=== PATIENT | female | born 1935 | race Two or more races ===

== ENCOUNTER 2018-02-02 19:34 | Inpatient (IN) | payer MEDICARE, OTHER ==
[~2018-02-02] VITALS: Ht 170.2 cm; Wt 59.0 kg
[2018-02-02] MEDS ORDERED: METOPROLOL TAR100 MG ORAL (19:41)
[2018-02-02] MEDS ORDERED: ELIQUIS5 MG PO (19:41)
[2018-02-02] MEDS ORDERED: DIOVAN HCT 1601 EACH ORAL (19:41)
[2018-02-02] MEDS ORDERED: CALCIUM MAGNES1 EAC2 PO (19:41)
[2018-02-02] MEDS ORDERED: ZINC50 M1 ORAL (19:41)
[2018-02-02] MEDS ORDERED: FOSAMAX70 MG ORAL (19:41)
[2018-02-02] MEDS ORDERED: ZINC10 MG ORAL (19:41)
[2018-02-02] MEDS ORDERED: VITAMIN D400 INTLU ORAL (19:41)
[2018-02-02 19:55] VITALS: BP 173/84
[2018-02-02] MEDS: Metoprolol 5mg/5ml Inj IVP SCH ×3 (20:05→20:33)
[2018-02-02 20:08] LABS: BASOPHILS % (AUTO) 2.4 % (0.0-2.0); HEMATOCRIT 44.4 % (37.0-47.0); HEMOGLOBIN 15.2 G/DL (12.0-16.0); LYMPHOCYTES % (AUTO) 26.2 % (20.0-45.0); MEAN CORPUSCULAR VOLUME 90 FL (80-99); MONOCYTES % (AUTO) 13.5 % (1.0-10.0); PLATELET COUNT 152 K/UL (150-450); RED BLOOD COUNT 4.95 M/UL (4.20-5.40); RED CELL DISTRIBUTION WIDTH 12.2 % (11.6-14.8); WHITE BLOOD COUNT 4.3 K/UL (4.8-10.8)
[2018-02-02 20:22] LABS: INR 1.1 (0.9-1.1)
[2018-02-02 20:29] LABS: ANION GAP 7 mmol/L (5-15); BLOOD UREA NITROGEN 15 mg/dL (7-18); CALCIUM 9.5 MG/DL (8.5-10.1); CARBON DIOXIDE 29 MMOL/L (21-32); CHLORIDE 101 MMOL/L (98-107); CREATININE 0.8 MG/DL (0.55-1.30); POTASSIUM 4.6 MMOL/L (3.5-5.1); SODIUM 137 MMOL/L (136-145)
[2018-02-02 20:41] LABS: ALANINE AMINOTRANSFERASE 103 U/L (12-78); ALBUMIN 3.6 G/DL (3.4-5.0); ALBUMIN/GLOBULIN RATIO 0.8 (1.0-2.7); ALKALINE PHOSPHATASE 97 U/L (46-116); ASPARTATE AMINO TRANSFERASE 124 U/L (15-37); BILIRUBIN,TOTAL 0.7 MG/DL (0.2-1.0); CREATINE KINASE 76 U/L (26-308)
--- NOTE | 2018-02-02 21:25 | Emergency Room Report ---
History of Present Illness General Chief Complaint: Chest Pain Source: Patient, EMS Present Illness HPI Patient is an 82-year-old female who presented after increased chest discomfort. Patient reports having increased left sided chest pain. Patient prior history of atrial fibrillation. She reportedly takes Allergies: Coded Allergies: No Known Allergies (Unverified , 02/02/18) Patient History Last Menstrual Period: NA Nursing Documentation-PMH Hx Cardiac Problems: Yes - afib Hx Hypertension: Yes Physical Exam Vital Signs Date Time Temp Pulse Resp B/P (MAP) Pulse Ox O2 Delivery O2 Flow Rate FiO2 02/02/18 19:34 98.5 117 18 160/112 97 Room Air 98.4 Medical Decision Making Diagnostic Impression: Primary Impression: Atrial fibrillation with RVR ER Course Patient presented for chest pain.Differential diagnosis included but was not limited to acute coronary syndrome, pulmonary embolism, pneumonia, aortic dissection, shingles, pneumothorax, aortic dissection, esophageal rupture, pericarditis. Because of complexity of patient's case laboratory testing and imaging studies were ordered.The patient was noted to be anti-coagulated with Elliquis as per patient was given IV metoprolol with improvement in her pain. Patient was noted to have evidence of nature fibrillation with rapid ventricular response an EKG with a rate of 103. The patient was given IV Lasix. Patient was discussed with Dr. Sheikh for cardiology consult. Dr. Mega Solares was contacted for inpatient management. Labs Test 02/02/18 19:53 White Blood Count 4.3 K/UL (4.8-10.8) Red Blood Count 4.95 M/UL (4.20-5.40) Hemoglobin 15.2 G/DL (12.0-16.0) Hematocrit 44.4 % (37.0-47.0) Mean Corpuscular Volume 90 FL (80-99) Mean Corpuscular Hemoglobin 30.7 PG (27.0-31.0) Mean Corpuscular Hemoglobin Concent 34.1 G/DL (32.0-36.0) Red Cell Distribution Width 12.2 % (11.6-14.8) Platelet Count 152 K/UL (150-450) Mean Platelet Volume 6.9 FL (6.5-10.1) Neutrophils (%) (Auto) 56.0 % (45.0-75.0) Lymphocytes (%) (Auto) 26.2 % (20.0-45.0) Monocytes (%) (Auto) 13.5 % (1.0-10.0) Eosinophils (%) (Auto) 2.0 % (0.0-3.0) Basophils (%) (Auto) 2.4 % (0.0-2.0) Prothrombin Time 11.2 SEC (9.30-11.50) Prothromb Time International Ratio 1.1 (0.9-1.1) Activated Partial Thromboplast Time 29 SEC (23-33) Sodium Level 137 MMOL/L (136-145) Potassium Level 4.6 MMOL/L (3.5-5.1) Chloride Level 101 MMOL/L (98-107) Carbon Dioxide Level 29 MMOL/L (21-32) Anion Gap 7 mmol/L (5-15) Blood Urea Nitrogen 15 mg/dL (7-18) Creatinine 0.8 MG/DL (0.55-1.30) Estimat Glomerular Filtration Rate mL/min (>60) Glucose Level 125 MG/DL (74-106) Calcium Level 9.5 MG/DL (8.5-10.1) Total Bilirubin 0.7 MG/DL (0.2-1.0) Aspartate Amino Transf (AST/SGOT) 124 U/L (15-37) Alanine Aminotransferase (ALT/SGPT) 103 U/L (12-78) Alkaline Phosphatase 97 U/L (46-116) Total Creatine Kinase 76 U/L (26-308) Creatine Kinase MB 1.0 NG/ML (0.0-3.6) Creatine Kinase MB Relative Index 1.3 Troponin I 0.000 ng/mL (0.000-0.056) Pro-B-Type Natriuretic Peptide 1251 pg/mL (0-125) Total Protein 8.0 G/DL (6.4-8.2) Albumin 3.6 G/DL (3.4-5.0) Globulin 4.4 g/dL Albumin/Globulin Ratio 0.8 (1.0-2.7) EKG Diagnostic Results Rate: tachycardiac Last Vital Signs Date Time Temp Pulse Resp B/P (MAP) Pulse Ox O2 Delivery O2 Flow Rate FiO2 02/02/18 20:33 98 168/88 02/02/18 19:55 18 Room Air 02/02/18 19:55 98.4 99 98.4 Status: improved Disposition: ADMITTED INPATIENT Condition: Serious Referrals: Arnie Sheikh MD (PCP) Ariel Elizabeth MD February 02, 2018 21:25
[2018-02-02 22:00] VITALS: BP 161/88
[2018-02-03] MEDS ORDERED: Zolpidem 5mg tab ORAL PRN (00:45)
[2018-02-03] MEDS ORDERED: Digoxin 0.5mg/2ml Inj IVP SCH (01:30)
[2018-02-03 04:00] VITALS: BP 120/89
[2018-02-03 04:41] LABS: BASOPHILS % (AUTO) 1.7 % (0.0-2.0); EOSINOPHILS % (AUTO) 1.8 % (0.0-3.0); HEMATOCRIT 43.6 % (37.0-47.0); HEMOGLOBIN 15.4 G/DL (12.0-16.0); LYMPHOCYTES % (AUTO) 26.6 % (20.0-45.0); MEAN CORPUSCULAR VOLUME 91 FL (80-99); MONOCYTES % (AUTO) 14.1 % (1.0-10.0); NEUTROPHILS % (AUTO) 55.8 % (45.0-75.0); PLATELET COUNT 143 K/UL (150-450); RED CELL DISTRIBUTION WIDTH 11.9 % (11.6-14.8); WHITE BLOOD COUNT 4.5 K/UL (4.8-10.8)
[2018-02-03 04:56] LABS: ANION GAP 7 mmol/L (5-15); BLOOD UREA NITROGEN 14 mg/dL (7-18); CALCIUM 9.7 MG/DL (8.5-10.1); CARBON DIOXIDE 31 MMOL/L (21-32); CHLORIDE 103 MMOL/L (98-107); CHOLESTEROL 200 MG/DL (< 200); CREATININE 0.8 MG/DL (0.55-1.30); HDL CHOLESTEROL 71 MG/DL (40-60); POTASSIUM 3.5 MMOL/L (3.5-5.1); SODIUM 141 MMOL/L (136-145); TRIGLYCERIDES 55 MG/DL (30-150)
[2018-02-03 08:00] VITALS: BP 92/57
[2018-02-03] MEDS: Losartan 50mg tab ORAL SCH (09:00)
[2018-02-03] MEDS: Digoxin 0.125mg tab ORAL SCH (09:45)
[2018-02-03] MEDS: Eliquis 2.5mg tablet ORAL SCH ×2 (09:45→17:46)
[2018-02-03] MEDS: hydroCHLOROthiazide 12.5mg TAB ORAL SCH (09:47)
--- NOTE | 2018-02-03 10:27 | Diagnostic Imaging Report ---
Indication: Dyspnea Comparison: None A single view chest radiograph was obtained. Findings: Lungs are hyperexpanded. Heart is enlarged. The bones are osteopenic. No pleural effusion seen. IMPRESSION: COPD Cardiomegaly
--- NOTE | 2018-02-03 11:28 | General Progress Note ---
Progress Note Progress Note [id number] full note dictated Mariela Laws MD February 03, 2018 11:28
--- NOTE | 2018-02-03 11:33 | Consultation ---
History of Present Illness General Date patient seen: February 03, 2018 Chief Complaint: Chest Pain Present Illness HPI 82-year-old female with hx of HTN, afib, on chronic anticoagulation presented to ER with CC of increased chest discomfort. Patient reports having increased left sided chest pain. Her heart rate is increased in ER. she received one dose of Metoprolol in ER. She is admitted to telemetry for further work up. Allergies: Coded Allergies: No Known Allergies (Unverified , 02/02/18) Medication History Scheduled Alendronate Sodium* (Fosamax*), 70 MG ORAL ONCE A WEEK, (Reported) Metoprolol Tartrate* (Metoprolol Tartrate*), 100 MG ORAL EVERY 12 HOURS, ( Reported) Valsartan/Hydrochlorothiazide 160-12.5MG (Diovan Hct 160-12.5 Mg Tab), Unknown Dose ORAL DAILY, (Reported) Vitamin D (Vitamin D3), 200 UNITS ORAL DAILY, (Reported) Miscellaneous Medications Apixaban (Eliquis), Unknown Dose PO, (Reported) Ca Carb & Gluc/Mag Ox & Gluc (Calcium Magnesium Caplet), Unknown Dose PO, ( Reported) Zinc (Zinc), Unknown Dose ORAL, (Reported) Zinc Gluconate (Zinc), 10 MG ORAL, (Reported) Patient History Healthcare decision maker Resuscitation status Full Code Advanced Directive on File No Past Medical/Surgical History Past Medical/Surgical History: (1) Hypertension (2) Chronic atrial fibrillation (3) Chronic anticoagulation Review of Systems Cardiovascular: Reports: chest pain All Other Systems: negative except mentioned in HPI Physical Exam General Appearance: WD/WN Lines, tubes and drains: peripheral HEENT: normocephalic, atraumatic Neck: non-tender, normal alignment Respiratory/Chest: chest wall non-tender, normal breath sounds Cardiovascular/Chest: normal peripheral pulses, regular rhythm Abdomen: normal bowel sounds, non tender, soft Genitourinary/Rectal: normal genital exam Extremities: normal range of motion Skin Exam: normal pigmentation Last 24 Hour Vital Signs Date Time Temp Pulse Resp B/P (MAP) Pulse Ox O2 Delivery O2 Flow Rate FiO2 02/03/18 09:45 88 02/03/18 09:00 92/57 02/03/18 08:00 97.0 88 92/57 100 Room Air 97.0 02/03/18 05:57 120/89 02/03/18 04:00 93 02/03/18 04:00 98.0 68 120/89 98 Room Air 98.0 02/03/18 01:30 87 02/02/18 22:10 98.4 90 18 161/88 98 Room Air 98.4 02/02/18 22:00 98.4 90 18 161/88 98 Room Air 98.4 02/02/18 20:33 98 168/88 02/02/18 20:22 95 143/106 02/02/18 20:05 100 173/84 02/02/18 19:55 97 18 Room Air 02/02/18 19:55 98.4 97 18 173/84 99 Room Air 98.4 02/02/18 19:34 98.5 117 18 160/112 97 Room Air 98.4 Intake and Output 02/02/18 02/03/18 19:00 07:00 Intake Total 0 ml Balance 0 ml Intake Oral 0 ml # Voids 1 Laboratory Tests Test 02/02/18 19:53 02/03/18 04:00 White Blood Count 4.3 K/UL (4.8-10.8) L 4.5 K/UL (4.8-10.8) L Red Blood Count 4.95 M/UL (4.20-5.40) 4.80 M/UL (4.20-5.40) Hemoglobin 15.2 G/DL (12.0-16.0) 15.4 G/DL (12.0-16.0) Hematocrit 44.4 % (37.0-47.0) 43.6 % (37.0-47.0) Mean Corpuscular Volume 90 FL (80-99) 91 FL (80-99) Mean Corpuscular Hemoglobin 30.7 PG (27.0-31.0) 32.2 PG (27.0-31.0) H Mean Corpuscular Hemoglobin Concent 34.1 G/DL (32.0-36.0) 35.4 G/DL (32.0-36.0) Red Cell Distribution Width 12.2 % (11.6-14.8) 11.9 % (11.6-14.8) Platelet Count 152 K/UL (150-450) 143 K/UL (150-450) L Mean Platelet Volume 6.9 FL (6.5-10.1) 7.7 FL (6.5-10.1) Neutrophils (%) (Auto) 56.0 % (45.0-75.0) 55.8 % (45.0-75.0) Lymphocytes (%) (Auto) 26.2 % (20.0-45.0) 26.6 % (20.0-45.0) Monocytes (%) (Auto) 13.5 % (1.0-10.0) H 14.1 % (1.0-10.0) H Eosinophils (%) (Auto) 2.0 % (0.0-3.0) 1.8 % (0.0-3.0) Basophils (%) (Auto) 2.4 % (0.0-2.0) H 1.7 % (0.0-2.0) Prothrombin Time 11.2 SEC (9.30-11.50) Prothromb Time International Ratio 1.1 (0.9-1.1) Activated Partial Thromboplast Time 29 SEC (23-33) Sodium Level 137 MMOL/L (136-145) 141 MMOL/L (136-145) Potassium Level 4.6 MMOL/L (3.5-5.1) 3.5 MMOL/L (3.5-5.1) Chloride Level 101 MMOL/L (98-107) 103 MMOL/L (98-107) Carbon Dioxide Level 29 MMOL/L (21-32) 31 MMOL/L (21-32) Anion Gap 7 mmol/L (5-15) 7 mmol/L (5-15) Blood Urea Nitrogen 15 mg/dL (7-18) 14 mg/dL (7-18) Creatinine 0.8 MG/DL (0.55-1.30) 0.8 MG/DL (0.55-1.30) Estimat Glomerular Filtration Rate mL/min (>60) mL/min (>60) Glucose Level 125 MG/DL (74-106) H 116 MG/DL (74-106) H Calcium Level 9.5 MG/DL (8.5-10.1) 9.7 MG/DL (8.5-10.1) Total Bilirubin 0.7 MG/DL (0.2-1.0) Aspartate Amino Transf (AST/SGOT) 124 U/L (15-37) H Alanine Aminotransferase (ALT/SGPT) 103 U/L (12-78) H Alkaline Phosphatase 97 U/L (46-116) Total Creatine Kinase 76 U/L (26-308) Creatine Kinase MB 1.0 NG/ML (0.0-3.6) Creatine Kinase MB Relative Index 1.3 Troponin I 0.000 ng/mL (0.000-0.056) Pro-B-Type Natriuretic Peptide 1251 pg/mL (0-125) H Total Protein 8.0 G/DL (6.4-8.2) Albumin 3.6 G/DL (3.4-5.0) Globulin 4.4 g/dL Albumin/Globulin Ratio 0.8 (1.0-2.7) L Magnesium Level 1.9 MG/DL (1.8-2.4) Triglycerides Level 55 MG/DL (30-150) Cholesterol Level 200 MG/DL (< 200) LDL Cholesterol 122 mg/dL (<100) H HDL Cholesterol 71 MG/DL (40-60) H Cholesterol/HDL Ratio 2.8 (3.3-4.4) L Height (Feet): 5 Height (Inches): 7.00 Weight (Pounds): 130 Medications Current Medications Medications (Trade) Dose Ordered Sig/Andra Route PRN Reason Start Time Stop Time Status Last Admin Dose Admin Acetaminophen (Tylenol) 650 mg Q4H PRN ORAL Mild Pain/Temp > 101 02/03/18 00:45 03/05/18 00:44 Apixaban (Eliquis) 5 mg BID ORAL 02/03/18 09:00 03/05/18 08:59 02/03/18 09:45 Clonidine HCl (Catapres Tab) 0.1 mg EVERY 8 HOURS ORAL 02/03/18 06:00 03/05/18 05:59 02/03/18 05:57 Digoxin (Lanoxin) 0.125 mg DAILY ORAL 02/03/18 09:00 03/05/18 08:59 02/03/18 09:45 Hydrochlorothiazide (Hydrodiuril) 12.5 mg DAILY ORAL 02/03/18 09:00 03/05/18 08:59 02/03/18 09:47 Losartan Potassium (Cozaar) 50 mg DAILY ORAL 02/03/18 09:00 03/05/18 08:59 Pantoprazole (Protonix) 40 mg DAILY ORAL 02/03/18 09:00 03/05/18 08:59 Zolpidem Tartrate (Ambien) 5 mg HSPRN PRN ORAL Insomnia 02/03/18 00:45 02/10/18 00:44 Assessment/Plan Problem List: (1) ACS (acute coronary syndrome) ICD Codes: I24.9 - Acute ischemic heart disease, unspecified SNOMED: 359289934 (2) Atrial fibrillation with RVR ICD Codes: I48.91 - Unspecified atrial fibrillation SNOMED: 449828771268409 (3) Chronic anticoagulation 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 Kay Valentin MD February 03, 2018 11:33
[2018-02-03 12:00] VITALS: BP 93/60
--- NOTE | 2018-02-03 15:57 | Cardiology Report ---
APPROVED REPORT EKG Measurement Heart [id number] Atrial fibrillation with rapid ventricular response with premature ventricular or aberrantly conducted complexes Septal infarct, age undetermined Abnormal ECG
[2018-02-03 16:00] VITALS: BP 96/52
[2018-02-03 20:00] VITALS: BP 105/61
--- NOTE | 2018-02-03 20:10 | Cardiology Progress Note ---
Assessment/Plan Assessment/Plan The patient is seen and examined, full consult note will be dictated. Objective Last 24 Hour Vital Signs Date Time Temp Pulse Resp B/P (MAP) Pulse Ox O2 Delivery O2 Flow Rate FiO2 02/03/18 16:02 86 02/03/18 16:00 97.0 84 96/52 95 Room Air 97.0 02/03/18 14:00 93/60 02/03/18 12:00 97.3 81 93/60 96 Room Air 97.3 02/03/18 11:39 81 02/03/18 09:45 88 02/03/18 09:00 92/57 02/03/18 08:00 97.0 88 92/57 100 Room Air 97.0 02/03/18 07:40 78 02/03/18 05:57 120/89 02/03/18 04:00 93 02/03/18 04:00 98.0 68 120/89 98 Room Air 98.0 02/03/18 01:30 87 02/02/18 22:10 98.4 90 18 161/88 98 Room Air 98.4 02/02/18 22:00 98.4 90 18 161/88 98 Room Air 98.4 02/02/18 20:33 98 168/88 02/02/18 20:22 95 143/106 Intake and Output 02/02/18 02/03/18 19:00 07:00 Intake Total 0 ml Balance 0 ml Intake Oral 0 ml # Voids 1 Laboratory Tests Test 02/03/18 04:00 White Blood Count 4.5 K/UL (4.8-10.8) L Red Blood Count 4.80 M/UL (4.20-5.40) Hemoglobin 15.4 G/DL (12.0-16.0) Hematocrit 43.6 % (37.0-47.0) Mean Corpuscular Volume 91 FL (80-99) Mean Corpuscular Hemoglobin 32.2 PG (27.0-31.0) H Mean Corpuscular Hemoglobin Concent 35.4 G/DL (32.0-36.0) Red Cell Distribution Width 11.9 % (11.6-14.8) Platelet Count 143 K/UL (150-450) L Mean Platelet Volume 7.7 FL (6.5-10.1) Neutrophils (%) (Auto) 55.8 % (45.0-75.0) Lymphocytes (%) (Auto) 26.6 % (20.0-45.0) Monocytes (%) (Auto) 14.1 % (1.0-10.0) H Eosinophils (%) (Auto) 1.8 % (0.0-3.0) Basophils (%) (Auto) 1.7 % (0.0-2.0) Sodium Level 141 MMOL/L (136-145) Potassium Level 3.5 MMOL/L (3.5-5.1) Chloride Level 103 MMOL/L (98-107) Carbon Dioxide Level 31 MMOL/L (21-32) Anion Gap 7 mmol/L (5-15) Blood Urea Nitrogen 14 mg/dL (7-18) Creatinine 0.8 MG/DL (0.55-1.30) Estimat Glomerular Filtration Rate mL/min (>60) Glucose Level 116 MG/DL (74-106) H Calcium Level 9.7 MG/DL (8.5-10.1) Magnesium Level 1.9 MG/DL (1.8-2.4) Triglycerides Level 55 MG/DL (30-150) Cholesterol Level 200 MG/DL (< 200) LDL Cholesterol 122 mg/dL (<100) H HDL Cholesterol 71 MG/DL (40-60) H Cholesterol/HDL Ratio 2.8 (3.3-4.4) Arnie Blunt MD February 03, 2018 20:10
[2018-02-03 22:11] LABS: APPEARANCE,URINE CLEAR; BILIRUBIN, URINE NEGATIVE (NEGATIVE); COLOR,URINE PALE YELLOW; GLUCOSE, URINE (UA) NEGATIVE (NEGATIVE); KETONES,URINE NEGATIVE (NEGATIVE); LEUKOCYTE ESTERASE ,URINE NEGATIVE (NEGATIVE); NITRITE,URINE NEGATIVE (NEGATIVE); PH,URINE 6 (4.5-8.0); PROTEIN,URINE NEGATIVE (NEGATIVE); UROBILINOGEN,URINE NORMAL MG/DL (0.0-1.0)
--- NOTE | 2018-02-03 22:30 | Consultation ---
DATE OF CONSULTATION: 02/03/2018 NEPHROLOGY CONSULTATION CONSULTING PHYSICIAN: Mariela Laws M.D. REFERRING PHYSICIAN: Arnie Sheikh M.D. REASON FOR CONSULTATION: Fluid overload. HISTORY OF PRESENT ILLNESS: The patient is an pleasant 82-year-old female with past medical history significant for history of atrial fibrillation who presented to emergency room for evaluation of increasing chest pain and chest discomfort, which was left sided, was associated with some shortness of breath. Denies any nausea, vomiting, orthopnea, PND, or leg swelling. There was no aggravating or relieving factor for chest pain. The patient was evaluated in the ER, found to have a heart rate of 117 with atrial fibrillation, which was acute and chronic. The patient also found to have an elevated BNP, was given Lasix, was admitted in the hospital. I was called for management of fluid overload and electrolyte imbalance. PAST MEDICAL HISTORY: 1. History of atrial fibrillation. 2. History of hypertension. MEDICATIONS: Home medications are including 1. Alendronate 70 mg p.o. daily. 2. Eliquis 5 mg p.o. b.i.d. 3. Metoprolol 100 mg p.o. daily. 4. Diovan 160/12.5 mg daily. 5. Zinc tablets mg p.o. daily. 6. Vitamin D 400 mg p.o. daily. ALLERGIES: No known drug allergies. SOCIAL HISTORY: She lives at home. There is no history of tobacco, alcohol, or drug use. FAMILY HISTORY: Negative for any history of premature heart disease. REVIEW OF SYSTEMS: GENERAL: She complained of generalized weakness. Denies any fever, chills, or night sweats. HEAD AND NECK: Denies any dysphagia, odynophagia, blurry vision, headache, or neck stiffness. PULMONARY: Mild shortness of breath. No cough. No sputum. CARDIOVASCULAR: Her chest pain at this point is resolved. She is complaining of mild palpitation. GASTROINTESTINAL: Denies any nausea, vomiting, diarrhea, hematemesis, or hematochezia. GENITOURINARY: Denies any dysuria, frequency, or hematuria. MUSCULOSKELETAL: Complained of generalized weakness. Denies any localized weakness or numbness. PHYSICAL EXAMINATION: VITAL SIGNS: The patient has a temperature of 98 degrees, blood pressure 120/89, pulse rate now is 63. HEAD AND NECK: No JVP. No LAD. No thyromegaly. Extraocular movement intact. Pupils are reactive to light and accommodation. LUNGS: Clear to auscultation. CARDIAC: Regular rate and rhythm. S1 and S2. No murmur. No rub. ABDOMEN: Soft, nontender, and nondistended. No organomegaly. EXTREMITIES: Trace edema. No clubbing. No cyanosis. NEUROLOGIC: Cranial nerves II through XII within normal limits. Upper and lower extremities are grossly intact. LABORATORY AND DIAGNOSTIC DATA: The patient has sodium of 141, potassium 3.5, chloride 103, bicarbonate 31, BUN of 14, creatinine of 0.1, and glucose is 116. AST of 124, ALT of 103, and alkaline phosphatase of 97. BNP was 1251. Total protein of 8. Albumin 3.6. Cholesterol is 200. LDL is 122 and HDL of 71. There is no UA. ASSESSMENT: 1. Fluid overload. At this point, today this morning, the patient does not seem to be grossly overloaded, maybe she received Lasix in the ER and at this time, she does not have any JVP and she did not have any lower extremity swelling and she is saturating 100% on room air. So, I would hold the Lasix. 2. Elevated liver enzymes, which for that I would recommend to repeat the liver enzymes and possible ultrasound of the liver. 3. Dyslipidemia, elevated LDL of 122, which needs to be starting on statin. 4. Hypertension, which is well controlled at this time. PLAN: Plan for the patient is to obtain a UA. Check the random urine protein to creatinine ratio to calculate the proteinuria. Check the microalbumin level. Replace electrolytes as needed. Hold the Lasix. At the end, I would like to thank, Dr. Sheikh and Dr. Mega Solares, for allowing me to participate in the care of this patient. Mariela Laws M.D. DR: FRANCISCO J JOB#: [id number] CC:
[2018-02-04] VITALS: BP 108/69
--- NOTE | 2018-02-04 03:00 | History and Physical Report ---
DATE OF ADMISSION: 02/02/2018 TIME: At 4 p.m. METAL TRIM ERECTOR: Arnie Sheikh M.D. CHIEF COMPLAINT: Palpitation. BRIEF HISTORY: This is an 82-year-old female, who lives at home presents with history of palpitation for a day, slightly anxious. The patient came in to [facility], diagnosed with above, admitted to telemetry for further care. Currently calm in bed. No complaint. No chest pain. No shortness of breath. No nausea, vomiting, or diarrhea. PAST MEDICAL HISTORY: Atrial fibrillation, chest pain, tachycardia, cardiomegaly, and hypertension. PAST SURGICAL HISTORY: None. MEDICATIONS: Cozaar, HydroDIURIL, Protonix, Lanoxin, Eliquis, Catapres, Ambien, Tylenol, Lasix, and Lopressor. ALLERGIES: Denies. SOCIAL HISTORY: No smoking. No alcohol. No intravenous drug abuse. FAMILY HISTORY: Noncontributory. PHYSICAL EXAMINATION: GENERAL: Calm in bed, oriented x2, in no acute distress. VITAL SIGNS: Temperature is 97 degrees, pulse 81, respiratory rate 20, and blood pressure 93/60. CARDIOVASCULAR: Irregular. LUNGS: Clear. ABDOMEN: Bowel sounds positive. Nontender. Nondistended. EXTREMITIES: No cyanosis, clubbing, or edema. NEUROLOGIC: The patient moves all extremities, slightly weak. LABORATORY AND DIAGNOSTIC DATA: White count 4.5 and platelets 143, otherwise CBC is normal. BMP shows glucose 116, otherwise normal. INR is 1.1 and PTT 29. ASSESSMENT: 1. Atrial fibrillation. 2. Palpitations. 3. Chest pain. 4. Tachycardia. 5. Cardiomegaly. 6. Hypotension. PLAN: 1. Cardiac followup. 2. Blood pressure control. 3. Pain control. 4. Dietary followup. 5. We will continue to follow the patient. 6. OT, PT, and dietary evaluation. 7. CBC and BMP in the morning. Mega Solares D.O. DR: MATTHEW JOB#: [id number] CC:
[2018-02-04 04:00] VITALS: BP 114/71
[2018-02-04 07:56] LABS: BASOPHILS % (AUTO) 1.7 % (0.0-2.0); EOSINOPHILS % (AUTO) 1.6 % (0.0-3.0); HEMATOCRIT 42.1 % (37.0-47.0); HEMOGLOBIN 14.8 G/DL (12.0-16.0); LYMPHOCYTES % (AUTO) 24.4 % (20.0-45.0); MEAN CORPUSCULAR VOLUME 92 FL (80-99); MONOCYTES % (AUTO) 13.2 % (1.0-10.0); NEUTROPHILS % (AUTO) 59.1 % (45.0-75.0); PLATELET COUNT 146 K/UL (150-450); RED BLOOD COUNT 4.59 M/UL (4.20-5.40); WHITE BLOOD COUNT 3.7 K/UL (4.8-10.8)
[2018-02-04 08:00] VITALS: BP 90/57
[2018-02-04 08:12] LABS: ALANINE AMINOTRANSFERASE 62 U/L (12-78); ALBUMIN 3.3 G/DL (3.4-5.0); ALBUMIN/GLOBULIN RATIO 0.8 (1.0-2.7); ALKALINE PHOSPHATASE 80 U/L (46-116); ANION GAP 5 mmol/L (5-15); ASPARTATE AMINO TRANSFERASE 48 U/L (15-37); BLOOD UREA NITROGEN 20 mg/dL (7-18); CALCIUM 9.6 MG/DL (8.5-10.1); CARBON DIOXIDE 30 MMOL/L (21-32); CHLORIDE 103 MMOL/L (98-107); CREATININE 0.8 MG/DL (0.55-1.30); PHOSPHORUS 3.8 MG/DL (2.5-4.9); POTASSIUM 4.4 MMOL/L (3.5-5.1); SODIUM 138 MMOL/L (136-145)
[2018-02-04] MEDS: hydroCHLOROthiazide 12.5mg TAB ORAL SCH (08:42)
[2018-02-04] MEDS: Eliquis 2.5mg tablet ORAL SCH ×2 (08:42→17:45)
[2018-02-04] MEDS: Losartan 50mg tab ORAL SCH (08:42)
[2018-02-04] MEDS: Digoxin 0.125mg tab ORAL SCH (08:42)
--- NOTE | 2018-02-04 11:08 | Pulmonology Progress Note ---
Assessment/Plan Problems: (1) Atrial fibrillation with RVR (2) ACS (acute coronary syndrome) (3) Chronic anticoagulation (4) Chronic atrial fibrillation (5) Hypertension Assessment/Plan titrate cardiac meds symptomatic treatment monitor BP keep in teli until heart rate is controlled on Epixiban Subjective ROS Limited/Unobtainable: No Interval Events: afib, not controlled, up to 120 Allergies: Coded Allergies: No Known Allergies (Unverified , 02/02/18) Objective Last 24 Hour Vital Signs Date Time Temp Pulse Resp B/P (MAP) Pulse Ox O2 Delivery O2 Flow Rate FiO2 02/04/18 09:00 86 90/57 02/04/18 08:42 86 02/04/18 08:42 90/57 02/04/18 08:00 87 02/04/18 08:00 97.2 81 20 90/57 98 Room Air 97.2 02/04/18 05:19 114/71 02/04/18 04:00 73 02/04/18 04:00 97.4 86 20 114/71 97 Room Air 97.4 02/04/18 00:00 97 02/04/18 00:00 98.2 84 108/69 96 Room Air 98.2 02/03/18 21:07 105/61 02/03/18 20:00 103 02/03/18 20:00 97.7 96 105/61 95 Room Air 97.7 02/03/18 16:02 86 02/03/18 16:00 97.0 84 96/52 95 Room Air 97.0 02/03/18 14:00 93/60 02/03/18 12:00 97.3 81 93/60 96 Room Air 97.3 02/03/18 11:39 81 Intake and Output 02/03/18 02/04/18 19:00 07:00 Intake Total 500 ml Balance 500 ml Intake Oral 500 ml # Voids 2 2 General Appearance: cachetic HEENT: normocephalic, atraumatic Respiratory/Chest: chest wall non-tender, lungs clear Cardiovascular: normal peripheral pulses, normal rate Abdomen: normal bowel sounds, soft, non tender Genitourinary: normal external genitalia Extremities: no cyanosis Neurologic/Psychiatric: account information clerk II-XII grossly normal Laboratory Tests 02/03/18 21:20: Urine Color Pale yellow, Urine Appearance Clear, Urine pH 6, Urine Specific [place] 1.020, Urine Protein Negative, Urine Glucose (UA) Negative, Urine Ketones Negative, Urine Occult Blood Negative, Urine Nitrite Negative, Urine Bilirubin Negative, Urine Urobilinogen Normal, Urine Leukocyte Esterase Negative , Urine RBC 0-2, Urine WBC 2-4, Urine Squamous Epithelial Cells Few, Urine Amorphous Sediment FewH, Urine Bacteria Few, Urine Random Creatinine [Pending], Urine Random Microalbumin [Pending], Urine Random Total Protein 7, Urine Random Sodium 113H, Urine Creatinine 151.8H, Urine Microalbumin/Creatinine Ratio [ Pending] 02/04/18 06:20: White Blood Count 3.7L, Red Blood Count 4.59, Hemoglobin 14.8, Hematocrit 42.1, Mean Corpuscular Volume 92, Mean Corpuscular Hemoglobin 32.3H, Mean Corpuscular Hemoglobin Concent 35.2, Red Cell Distribution Width 12.0, Platelet Count 146L, Mean Platelet Volume 7.5, Neutrophils (%) (Auto) 59.1, Lymphocytes (%) (Auto) 24.4, Monocytes (%) (Auto) 13.2H, Eosinophils (%) (Auto) 1.6, Basophils (%) ( Auto) 1.7, Erythrocyte Sedimentation Rate 30, Sodium Level 138, Potassium Level 4.4, Chloride Level 103, Carbon Dioxide Level 30, Anion Gap 5, Blood Urea Nitrogen 20H, Creatinine 0.8, Estimat Glomerular Filtration Rate , Glucose Level 112H, Calcium Level 9.6, Phosphorus Level 3.8, Magnesium Level 1.9, Total Bilirubin 1.0, Aspartate Amino Transf (AST/SGOT) 48H, Alanine Aminotransferase ( ALT/SGPT) 62, Alkaline Phosphatase 80, Troponin I 0.000, Total Protein 7.4, Albumin 3.3L, Globulin 4.1, Albumin/Globulin Ratio 0.8L Current Medications Medications (Trade) Dose Ordered Sig/Andra Route PRN Reason Start Time Stop Time Status Last Admin Dose Admin Acetaminophen (Tylenol) 650 mg Q4H PRN ORAL Mild Pain/Temp > 101 02/03/18 00:45 03/05/18 00:44 Apixaban (Eliquis) 5 mg BID ORAL 02/03/18 09:00 03/05/18 08:59 02/04/18 08:42 Clonidine HCl (Catapres Tab) 0.1 mg EVERY 8 HOURS ORAL 5/30/18 06:00 03/05/18 05:59 02/04/18 05:19 Digoxin (Lanoxin) 0.125 mg DAILY ORAL 02/03/18 09:00 03/05/18 08:59 02/04/18 08:42 Hydrochlorothiazide (Hydrodiuril) 12.5 mg DAILY ORAL 02/03/18 09:00 03/05/18 08:59 02/03/18 09:47 Losartan Potassium (Cozaar) 50 mg DAILY ORAL 02/03/18 09:00 03/05/18 08:59 Metoprolol Tartrate (Lopressor) 100 mg EVERY 12 HOURS ORAL 02/04/18 09:00 03/06/18 08:59 Pantoprazole (Protonix) 40 mg DAILY ORAL 02/03/18 09:00 03/05/18 08:59 02/04/18 08:42 Zolpidem Tartrate (Ambien) 5 mg HSPRN PRN ORAL Insomnia 02/03/18 00:45 02/10/18 00:44 Kay Valentin MD February 04, 2018 11:08
[2018-02-04 12:00] VITALS: BP 107/73
--- NOTE | 2018-02-04 13:18 | General Progress Note ---
Assessment/Plan Problem List: (1) Hypertension ICD Codes: I10 - Essential (primary) hypertension SNOMED: 90487249 (2) Chronic anticoagulation ICD Codes: Z79.01 - correction (current) use of anticoagulants SNOMED: 378604142 (3) Chronic atrial fibrillation ICD Codes: I48.2 - Chronic atrial fibrillation SNOMED: 580379798 (4) Atrial fibrillation with RVR ICD Codes: I48.91 - Unspecified atrial fibrillation SNOMED: 467875229204389 (5) ACS (acute coronary syndrome) ICD Codes: I24.9 - Acute ischemic heart disease, unspecified SNOMED: 056598010 Status: stable, progressing Assessment/Plan ot pt diet pain control cardio f/u cbc bmp am dc plan w hh Subjective Constitutional: Reports: weakness Allergies: Coded Allergies: No Known Allergies (Unverified , 02/02/18) All Systems: reviewed and negative except above Subjective eating calm Objective Last 24 Hour Vital Signs Date Time Temp Pulse Resp B/P (MAP) Pulse Ox O2 Delivery O2 Flow Rate FiO2 02/04/18 09:00 86 90/57 02/04/18 08:42 86 02/04/18 08:42 90/57 02/04/18 08:00 87 02/04/18 08:00 97.2 81 20 90/57 98 Room Air 97.2 02/04/18 05:19 114/71 02/04/18 04:00 73 02/04/18 04:00 97.4 86 20 114/71 97 Room Air 97.4 02/04/18 00:00 97 02/04/18 00:00 98.2 84 108/69 96 Room Air 98.2 02/03/18 21:07 105/61 02/03/18 20:00 103 02/03/18 20:00 97.7 96 105/61 95 Room Air 97.7 02/03/18 16:02 86 02/03/18 16:00 97.0 84 96/52 95 Room Air 97.0 02/03/18 14:00 93/60 Intake and Output 02/03/18 02/04/18 19:00 07:00 Intake Total 500 ml Balance 500 ml Intake Oral 500 ml # Voids 2 2 Laboratory Tests 02/03/18 21:20: Urine Color Pale yellow, Urine Appearance Clear, Urine pH 6, Urine Specific [place] 1.020, Urine Protein Negative, Urine Glucose (UA) Negative, Urine Ketones Negative, Urine Occult Blood Negative, Urine Nitrite Negative, Urine Bilirubin Negative, Urine Urobilinogen Normal, Urine Leukocyte Esterase Negative , Urine RBC 0-2, Urine WBC 2-4, Urine Squamous Epithelial Cells Few, Urine Amorphous Sediment FewH, Urine Bacteria Few, Urine Random Creatinine [Pending], Urine Random Microalbumin [Pending], Urine Random Total Protein 7, Urine Random Sodium 113H, Urine Creatinine 151.8H, Urine Microalbumin/Creatinine Ratio [ Pending] 02/04/18 06:20: White Blood Count 3.7L, Red Blood Count 4.59, Hemoglobin 14.8, Hematocrit 42.1, Mean Corpuscular Volume 92, Mean Corpuscular Hemoglobin 32.3H, Mean Corpuscular Hemoglobin Concent 35.2, Red Cell Distribution Width 12.0, Platelet Count 146L, Mean Platelet Volume 7.5, Neutrophils (%) (Auto) 59.1, Lymphocytes (%) (Auto) 24.4, Monocytes (%) (Auto) 13.2H, Eosinophils (%) (Auto) 1.6, Basophils (%) ( Auto) 1.7, Erythrocyte Sedimentation Rate 30, Sodium Level 138, Potassium Level 4.4, Chloride Level 103, Carbon Dioxide Level 30, Anion Gap 5, Blood Urea Nitrogen 20H, Creatinine 0.8, Estimat Glomerular Filtration Rate , Glucose Level 112H, Calcium Level 9.6, Phosphorus Level 3.8, Magnesium Level 1.9, Total Bilirubin 1.0, Aspartate Amino Transf (AST/SGOT) 48H, Alanine Aminotransferase ( ALT/SGPT) 62, Alkaline Phosphatase 80, Troponin I 0.000, Total Protein 7.4, Albumin 3.3L, Globulin 4.1, Albumin/Globulin Ratio 0.8L Height (Feet): 5 Height (Inches): 7.00 Weight (Pounds): 130 General Appearance: alert EENT: normal ENT inspection Neck: normal alignment Cardiovascular: normal peripheral pulses, regularly irregular, arrhythmia Respiratory/Chest: chest wall non-tender, lungs clear, normal breath sounds Abdomen: normal bowel sounds, non tender, soft Extremities: normal inspection Edema: no edema noted Arm (L), no edema noted Arm (R), no edema noted Leg (L), no edema noted Leg (R), no edema noted Pedal (L), no edema noted Pedal (R), no edema noted Generalized Neurologic: responsive, motor weakness Skin: normal pigmentation, warm/dry Mega Solares DO February 04, 2018 13:18
[2018-02-04 16:00] VITALS: BP 111/75
--- NOTE | 2018-02-04 17:58 | Nephrology Progress Note ---
Assessment/Plan Assessment 1. Fluid overload. 2. Elevated liver enzymes, 3. Dyslipidemia, . 4. Hypertension, Plan plan to continue current meds monitoring renal function avoid NSAID replace electrolyte as need it Subjective Constitutional: Reports: no symptoms HEENT: Reports: no symptoms Genitourinary: Reports: no symptoms Neurologic/Psychiatric: Reports: no symptoms Objective Objective Last 24 Hour Vital Signs Date Time Temp Pulse Resp B/P (MAP) Pulse Ox O2 Delivery O2 Flow Rate FiO2 02/04/18 16:00 85 02/04/18 16:00 97.5 71 20 111/75 99 Room Air 97.5 02/04/18 14:00 110/53 02/04/18 12:00 97.3 69 20 107/73 97 Room Air 97.3 02/04/18 12:00 106 02/04/18 09:00 86 90/57 02/04/18 08:42 86 02/04/18 08:42 90/57 02/04/18 08:00 87 02/04/18 08:00 97.2 81 20 90/57 98 Room Air 97.2 02/04/18 05:19 114/71 02/04/18 04:00 73 02/04/18 04:00 97.4 86 20 114/71 97 Room Air 97.4 02/04/18 00:00 97 02/04/18 00:00 98.2 84 108/69 96 Room Air 98.2 02/03/18 21:07 105/61 02/03/18 20:00 103 02/03/18 20:00 97.7 96 105/61 95 Room Air 97.7 Intake and Output 02/03/18 02/04/18 19:00 07:00 Intake Total 500 ml Balance 500 ml Intake Oral 500 ml # Voids 2 2 Laboratory Tests 02/03/18 21:20: Urine Color Pale yellow, Urine Appearance Clear, Urine pH 6, Urine Specific [place] 1.020, Urine Protein Negative, Urine Glucose (UA) Negative, Urine Ketones Negative, Urine Occult Blood Negative, Urine Nitrite Negative, Urine Bilirubin Negative, Urine Urobilinogen Normal, Urine Leukocyte Esterase Negative , Urine RBC 0-2, Urine WBC 2-4, Urine Squamous Epithelial Cells Few, Urine Amorphous Sediment FewH, Urine Bacteria Few, Urine Random Creatinine [Pending], Urine Random Microalbumin [Pending], Urine Random Total Protein 7, Urine Random Sodium 113H, Urine Creatinine 151.8H, Urine Microalbumin/Creatinine Ratio [ Pending] 02/04/18 06:20: White Blood Count 3.7L, Red Blood Count 4.59, Hemoglobin 14.8, Hematocrit 42.1, Mean Corpuscular Volume 92, Mean Corpuscular Hemoglobin 32.3H, Mean Corpuscular Hemoglobin Concent 35.2, Red Cell Distribution Width 12.0, Platelet Count 146L, Mean Platelet Volume 7.5, Neutrophils (%) (Auto) 59.1, Lymphocytes (%) (Auto) 24.4, Monocytes (%) (Auto) 13.2H, Eosinophils (%) (Auto) 1.6, Basophils (%) ( Auto) 1.7, Erythrocyte Sedimentation Rate 30, Sodium Level 138, Potassium Level 4.4, Chloride Level 103, Carbon Dioxide Level 30, Anion Gap 5, Blood Urea Nitrogen 20H, Creatinine 0.8, Estimat Glomerular Filtration Rate , Glucose Level 112H, Calcium Level 9.6, Phosphorus Level 3.8, Magnesium Level 1.9, Total Bilirubin 1.0, Aspartate Amino Transf (AST/SGOT) 48H, Alanine Aminotransferase ( ALT/SGPT) 62, Alkaline Phosphatase 80, Troponin I 0.000, Total Protein 7.4, Albumin 3.3L, Globulin 4.1, Albumin/Globulin Ratio 0.8L Height (Feet): 5 Height (Inches): 7.00 Weight (Pounds): 130 Objective HEAD AND NECK: No JVP. No LAD. No thyromegaly. Extraocular movement intact. Pupils are reactive to light and accommodation. LUNGS: Clear to auscultation. CARDIAC: Regular rate and rhythm. S1 and S2. No murmur. No rub. ABDOMEN: Soft, nontender, and nondistended. No organomegaly. EXTREMITIES: Trace edema. No clubbing. No cyanosis. NEUROLOGIC: Cranial nerves II through XII within normal limits. Upper and lower extremities are grossly intact. Mariela Laws MD February 04, 2018 17:58
--- NOTE | 2018-02-04 18:46 | Consultation ---
DATE OF CONSULTATION: 02/03/2018 CARDIOLOGY CONSULTATION CONSULTING PHYSICIAN: Arnie Sheikh M.D. REFERRING PHYSICIAN: Mega Solares D.O. REASON FOR CONSULTATION: Management of atrial fibrillation. HISTORY OF PRESENT ILLNESS: The patient is an 82-year-old [place] lady, who presents to the Emergency Department with an increasing chest discomfort, that was migratory from midsternal to the left precordial area, felt as pounding. This persisted for some time and caused discomfort. She decided to come to the Emergency Department for further evaluation and management. Her cardiac history significant for permanent atrial fibrillation for which she takes oral anticoagulation therapy as well as beta-blockers for heart rate control. Apparently, at the time of arrival to the hospital, she had atrial fibrillation with rapid ventricular response. Her initial vitals in the Emergency Department, blood pressure was 160/112 mmHg and pulse of 117 beats per minute. PAST MEDICAL HISTORY: Permanent atrial fibrillation, hypertension, vitamin D deficiency, and osteoporosis. PAST SURGICAL HISTORY: History of electrical cardioversion of atrial fibrillation. MEDICATIONS: List of medication, alendronate 70 mg oral once a week, apixaban 5 mg p.o. twice daily, calcium magnesium caplets 1 tablet daily, metoprolol 100 mg twice daily, valsartan/ hydrochlorothiazide 160/12.5 mg once daily, vitamin D3 200 units p.o. daily, and zinc gluconate 10 mg p.o. daily. SOCIAL HISTORY: Denies any tobacco, alcohol, or illicit drug use. REVIEW OF SYSTEMS: HEENT: Denies any headache, diplopia, or blurred vision. CONSTITUTIONAL: Denies any fever, chills, night sweats, or weight loss. CARDIOVASCULAR: Chest pain as mentioned above. Denies any PND, orthopnea, or leg swelling. Syncope and had palpitation as mentioned above. PULMONARY: Denies any cough, hemoptysis, or wheezing. GASTROINTESTINAL: Denies any nausea, vomiting, diarrhea, constipation, abdominal pain, or GI bleed. GENITOURINARY: Denies any hematuria, dysuria, or incontinence. NEUROLOGY: Denies any motor dysfunction, sensory deficit, or altered speech. PHYSICAL EXAMINATION: GENERAL: The patient is a very unfortunate 82-year-old lady, in no apparent respiratory distress. Alert and oriented x4. VITAL SIGNS: Blood pressure was 160/112, pulse of 117, respirations 18, O2 saturation 97% on room air, and temperature 98.5 degrees Fahrenheit. HEENT: Atraumatic and normocephalic. Anicteric. Pupils are equal, round, and reactive to light and accommodation. Extraocular movements are intact. NECK: JVP less than 5 cm. No carotid bruit. Carotid upstroke is 2+ bilaterally. CARDIOVASCULAR: Normal S1 and S2. Irregularly irregular rhythm. A 2/6 mid systolic murmur at the left sternal border. PMI is at fourth intercostal space in the midclavicular line. LUNGS: Clear to auscultation bilaterally. ABDOMEN: Soft, nontender, and nondistended. No hepatosplenomegaly. Positive bowel sounds. EXTREMITIES: No evidence of edema, clubbing, or cyanosis. LABORATORY AND DIAGNOSTIC DATA: WBC 4.3, hemoglobin 15.2, hematocrit 44.4, platelet count is 152,000. Sodium 137, potassium is 4.6, chloride 101, bicarbonate 29, BUN of 15, creatinine 0.8 and glucose 125. Calcium is 9.5. AST was 124 and ALT of 103. ProBNP was 1251. Triglyceride was of 55, LDL was 122, and HDL of 71. Chest x-ray showed osteopenia, COPD, and cardiomegaly. No acute cardiopulmonary disease. ASSESSMENT AND PLAN: The patient is a very unfortunate 82-year-old female, seen in Cardiology consultation at request of Dr. Solares. 1. Permanent atrial fibrillation with rapid ventricular response. We will like to increase her metoprolol to 150 mg twice a day. She will be continued on Eliquis 5 mg twice daily. I would also like to add digoxin 0.125 mg daily. The patient had failed cardioversion in the past. 2. History of hypertension. The patient presents to the hospital with accelerated hypertension. We will try to continue with losartan/hydrochlorothiazide in this admission. She will continue to optimize valsartan/hydrochlorothiazide in the outpatient setting. We will up titrate the metoprolol. Our goal of her blood pressure would be less than 130/80 mmHg. 3. Chest pain, noncardiac likely due to atrial fibrillation with rapid ventricular rate. The patient is ruled out for acute myocardial infarction. I will like to thank Dr. Solares for the courtesy of this consultation. Arnie Sheikh M.D. DR: GLENN JOB#: [id number] CC:
--- NOTE | 2018-02-04 19:58 | Cardiology Progress Note ---
Assessment/Plan Assessment/Plan 1. Permanent atrial fibrillation with rapid ventricular response, continue metoprolol, digoxin and Eliquis. The patient had failed cardioversion in the past. 2. History of hypertension. Currently low BP likely due to clonidine use, DC clonidine and HCTZ. 3. Chest pain, noncardiac likely due to atrial fibrillation with rapid ventricular rate. The patient is ruled out for acute myocardial infarction. Subjective Subjective Atrial fibrillation with RVR at 111. Objective Last 24 Hour Vital Signs Date Time Temp Pulse Resp B/P (MAP) Pulse Ox O2 Delivery O2 Flow Rate FiO2 02/04/18 16:00 85 02/04/18 16:00 97.5 71 20 111/75 99 Room Air 97.5 02/04/18 14:00 110/53 02/04/18 12:00 97.3 69 20 107/73 97 Room Air 97.3 02/04/18 12:00 106 02/04/18 09:00 86 90/57 02/04/18 08:42 86 02/04/18 08:42 90/57 02/04/18 08:00 87 02/04/18 08:00 97.2 81 20 90/57 98 Room Air 97.2 02/04/18 05:19 114/71 02/04/18 04:00 73 02/04/18 04:00 97.4 86 20 114/71 97 Room Air 97.4 02/04/18 00:00 97 02/04/18 00:00 98.2 84 108/69 96 Room Air 98.2 02/03/18 21:07 105/61 02/03/18 20:00 103 02/03/18 20:00 97.7 96 105/61 95 Room Air 97.7 Intake and Output 02/03/18 02/04/18 19:00 07:00 Intake Total 500 ml Balance 500 ml Intake Oral 500 ml # Voids 2 2 Laboratory Tests Test 02/03/18 21:20 02/04/18 06:20 Urine Color Pale yellow Urine Appearance Clear Urine pH 6 (4.5-8.0) Urine Specific [place] 1.020 (1.005-1.035) Urine Protein Negative (NEGATIVE) Urine Glucose (UA) Negative (NEGATIVE) Urine Ketones Negative (NEGATIVE) Urine Occult Blood Negative (NEGATIVE) Urine Nitrite Negative (NEGATIVE) Urine Bilirubin Negative (NEGATIVE) Urine Urobilinogen Normal MG/DL (0.0-1.0) Urine Leukocyte Esterase Negative (NEGATIVE) Urine RBC 0-2 /HPF (0 - 2) Urine WBC 2-4 /HPF (0 - 2) Urine Squamous Epithelial Cells Few /LPF (NONE/OCC) Urine Amorphous Sediment Few /LPF (NONE) H Urine Bacteria Few /HPF (NONE) Urine Random Creatinine Pending Urine Random Microalbumin Pending Urine Random Total Protein 7 MG/DL (< 11.9) Urine Random Sodium 113 mmol/L (20-110) H Urine Creatinine 151.8 MG/DL (30.0-125.0) H Urine Microalbumin/Creatinine Ratio Pending White Blood Count 3.7 K/UL (4.8-10.8) L Red Blood Count 4.59 M/UL (4.20-5.40) Hemoglobin 14.8 G/DL (12.0-16.0) Hematocrit 42.1 % (37.0-47.0) Mean Corpuscular Volume 92 FL (80-99) Mean Corpuscular Hemoglobin 32.3 PG (27.0-31.0) H Mean Corpuscular Hemoglobin Concent 35.2 G/DL (32.0-36.0) Red Cell Distribution Width 12.0 % (11.6-14.8) Platelet Count 146 K/UL (150-450) L Mean Platelet Volume 7.5 FL (6.5-10.1) Neutrophils (%) (Auto) 59.1 % (45.0-75.0) Lymphocytes (%) (Auto) 24.4 % (20.0-45.0) Monocytes (%) (Auto) 13.2 % (1.0-10.0) H Eosinophils (%) (Auto) 1.6 % (0.0-3.0) Basophils (%) (Auto) 1.7 % (0.0-2.0) Erythrocyte Sedimentation Rate 30 MM/HR (0-30) Sodium Level 138 MMOL/L (136-145) Potassium Level 4.4 MMOL/L (3.5-5.1) Chloride Level 103 MMOL/L (98-107) Carbon Dioxide Level 30 MMOL/L (21-32) Anion Gap 5 mmol/L (5-15) Blood Urea Nitrogen 20 mg/dL (7-18) H Creatinine 0.8 MG/DL (0.55-1.30) Estimat Glomerular Filtration Rate mL/min (>60) Glucose Level 112 MG/DL (74-106) H Calcium Level 9.6 MG/DL (8.5-10.1) Phosphorus Level 3.8 MG/DL (2.5-4.9) Magnesium Level 1.9 MG/DL (1.8-2.4) Total Bilirubin 1.0 MG/DL (0.2-1.0) Aspartate Amino Transf (AST/SGOT) 48 U/L (15-37) H Alanine Aminotransferase (ALT/SGPT) 62 U/L (12-78) Alkaline Phosphatase 80 U/L (46-116) Troponin I 0.000 ng/mL (0.000-0.056) Total Protein 7.4 G/DL (6.4-8.2) Albumin 3.3 G/DL (3.4-5.0) L Globulin 4.1 g/dL Albumin/Globulin Ratio 0.8 (1.0-2.7) L Objective HEENT: Atraumatic and normocephalic. Anicteric. Pupils are equal, round, and reactive to light and accommodation. Extraocular movements are intact. NECK: JVP less than 5 cm. No carotid bruit. Carotid upstroke is 2+ bilaterally. CARDIOVASCULAR: Normal S1 and S2. Irregularly irregular rhythm. A 2/6 mid systolic murmur at the left sternal border. PMI is at fourth intercostal space in the midclavicular line. LUNGS: Clear to auscultation bilaterally. ABDOMEN: Soft, nontender, and nondistended. No hepatosplenomegaly. Positive bowel sounds. EXTREMITIES: No evidence of edema, clubbing, or cyanosis. Arnie Sheikh MD February 04, 2018 19:58
[2018-02-04 21:00] VITALS: BP 111/75
[2018-02-05] VITALS: BP 133/88
[2018-02-05 04:00] VITALS: BP 120/71
[2018-02-05 05:51] LABS: BASOPHILS % (AUTO) 2.2 % (0.0-2.0); EOSINOPHILS % (AUTO) 2.3 % (0.0-3.0); HEMATOCRIT 41.4 % (37.0-47.0); HEMOGLOBIN 14.7 G/DL (12.0-16.0); LYMPHOCYTES % (AUTO) 29.5 % (20.0-45.0); MEAN CORPUSCULAR VOLUME 91 FL (80-99); MONOCYTES % (AUTO) 14.3 % (1.0-10.0); NEUTROPHILS % (AUTO) 51.7 % (45.0-75.0); PLATELET COUNT 149 K/UL (150-450); RED BLOOD COUNT 4.56 M/UL (4.20-5.40); RED CELL DISTRIBUTION WIDTH 12.3 % (11.6-14.8); WHITE BLOOD COUNT 4.1 K/UL (4.8-10.8)
[2018-02-05 06:16] LABS: ANION GAP 6 mmol/L (5-15); BLOOD UREA NITROGEN 19 mg/dL (7-18); CALCIUM 9.4 MG/DL (8.5-10.1); CARBON DIOXIDE 28 MMOL/L (21-32); CHLORIDE 104 MMOL/L (98-107); CREATININE 0.8 MG/DL (0.55-1.30); POTASSIUM 5.1 MMOL/L (3.5-5.1); SODIUM 138 MMOL/L (136-145)
[2018-02-05 08:00] VITALS: BP 130/72
[2018-02-05] MEDS: Digoxin 0.125mg tab ORAL SCH (08:36)
[2018-02-05] MEDS: Eliquis 2.5mg tablet ORAL SCH (08:37)
[2018-02-05] MEDS: Losartan 50mg tab ORAL SCH (08:38)
--- NOTE | 2018-02-05 11:21 | Pulmonology Progress Note ---
Assessment/Plan Problems: (1) Atrial fibrillation with RVR (2) ACS (acute coronary syndrome) (3) Chronic anticoagulation (4) Chronic atrial fibrillation (5) Hypertension Assessment/Plan titrate cardiac meds, Clonidine was stopped symptomatic treatment monitor BP [id number] keep in teli until heart rate is controlled on Epixiban Subjective ROS Limited/Unobtainable: No Constitutional: Reports: no symptoms HEENT: Repors: no symptoms Respiratory: Reports: no symptoms Allergies: Coded Allergies: No Known Allergies (Unverified , 02/02/18) Objective Last 24 Hour Vital Signs Date Time Temp Pulse Resp B/P (MAP) Pulse Ox O2 Delivery O2 Flow Rate FiO2 02/05/18 08:38 130/72 02/05/18 08:36 88 130/72 02/05/18 08:36 88 02/05/18 08:00 97.9 88 17 130/72 97 Room Air 97.9 02/05/18 04:00 97.5 70 20 120/71 96 Room Air 97.5 02/05/18 04:00 83 02/05/18 00:00 97.9 69 20 133/88 97 Room Air 97.9 02/05/18 00:00 83 02/04/18 21:18 96 111/75 02/04/18 21:00 97.5 71 20 111/75 99 Room Air 97.5 02/04/18 20:00 96 02/04/18 16:00 85 02/04/18 16:00 97.5 71 20 111/75 99 Room Air 97.5 02/04/18 14:00 110/53 02/04/18 12:00 97.3 69 20 107/73 97 Room Air 97.3 02/04/18 12:00 106 Intake and Output 02/04/18 02/05/18 19:00 07:00 Intake Total 500 ml 240 ml Balance 500 ml 240 ml Intake Oral 500 ml 240 ml # Voids 4 1 # Bowel Movements 2 General Appearance: WD/WN HEENT: normocephalic Respiratory/Chest: chest wall non-tender, normal breath sounds Breasts: no masses Cardiovascular: normal peripheral pulses Abdomen: normal bowel sounds Genitourinary: normal external genitalia Laboratory Tests 02/05/18 05:15: White Blood Count 4.1L, Red Blood Count 4.56, Hemoglobin 14.7, Hematocrit 41.4, Mean Corpuscular Volume 91, Mean Corpuscular Hemoglobin 32.3H, Mean Corpuscular Hemoglobin Concent 35.6, Red Cell Distribution Width 12.3, Platelet Count 149L, Mean Platelet Volume 7.8, Neutrophils (%) (Auto) 51.7, Lymphocytes (%) (Auto) 29.5, Monocytes (%) (Auto) 14.3H, Eosinophils (%) (Auto) 2.3, Basophils (%) ( Auto) 2.2H, Sodium Level 138, Potassium Level 5.1, Chloride Level 104, Carbon Dioxide Level 28, Anion Gap 6, Blood Urea Nitrogen 19H, Creatinine 0.8, Estimat Glomerular Filtration Rate , Glucose Level 104, Calcium Level 9.4 02/05/18 09:50: Stool Occult Blood [Pending] Current Medications Medications (Trade) Dose Ordered Sig/Andra Route PRN Reason Start Time Stop Time Status Last Admin Dose Admin Acetaminophen (Tylenol) 650 mg Q4H PRN ORAL Mild Pain/Temp > 101 02/03/18 00:45 03/05/18 00:44 Apixaban (Eliquis) 5 mg BID ORAL 02/03/18 09:00 03/05/18 08:59 02/05/18 08:37 Digoxin (Lanoxin) 0.125 mg DAILY ORAL 02/03/18 09:00 03/05/18 08:59 02/05/18 08:36 Losartan Potassium (Cozaar) 50 mg DAILY ORAL 02/03/18 09:00 03/05/18 08:59 02/05/18 08:38 Metoprolol Tartrate (Lopressor) 100 mg EVERY 12 HOURS ORAL 02/04/18 21:00 03/06/18 20:59 02/05/18 08:36 Pantoprazole (Protonix) 40 mg DAILY ORAL 02/03/18 09:00 03/05/18 08:59 02/05/18 08:36 Zolpidem Tartrate (Ambien) 5 mg HSPRN PRN ORAL Insomnia 02/03/18 00:45 02/10/18 00:44 Kay Valentin MD Feb 05, 2018 11:21
[2018-02-05 12:00] VITALS: BP 128/72
--- NOTE | 2018-02-05 12:41 | General Progress Note ---
Assessment/Plan Problem List: (1) Hypertension ICD Codes: I10 - Essential (primary) hypertension SNOMED: 07475254 (2) Chronic anticoagulation ICD Codes: Z79.01 - longterm (current) use of anticoagulants SNOMED: 021442877 (3) Chronic atrial fibrillation ICD Codes: I48.2 - Chronic atrial fibrillation SNOMED: 546125676 (4) Atrial fibrillation with RVR ICD Codes: I48.91 - Unspecified atrial fibrillation SNOMED: 978216237261820 (5) ACS (acute coronary syndrome) ICD Codes: I24.9 - Acute ischemic heart disease, unspecified SNOMED: 660083171 Status: unchanged Assessment/Plan ot pt diet pain control cardio f/u cbc bmp am dc plan w hh vs cath per cardio Subjective Constitutional: Reports: weakness Allergies: Coded Allergies: No Known Allergies (Unverified , 02/02/18) All Systems: reviewed and negative except above Subjective sitting calm Objective Last 24 Hour Vital Signs Date Time Temp Pulse Resp B/P (MAP) Pulse Ox O2 Delivery O2 Flow Rate FiO2 02/05/18 12:00 97.7 73 18 128/72 99 Room Air 97.7 02/05/18 08:38 130/72 02/05/18 08:36 88 130/72 02/05/18 08:36 88 02/05/18 08:00 97.9 88 17 130/72 97 Room Air 97.9 02/05/18 04:00 97.5 70 20 120/71 96 Room Air 97.5 02/05/18 04:00 83 02/05/18 00:00 97.9 69 20 133/88 97 Room Air 97.9 02/05/18 00:00 83 02/04/18 21:18 96 111/75 02/04/18 21:00 97.5 71 20 111/75 99 Room Air 97.5 02/04/18 20:00 96 02/04/18 16:00 85 02/04/18 16:00 97.5 71 20 111/75 99 Room Air 97.5 02/04/18 14:00 110/53 Intake and Output 02/04/18 02/05/18 19:00 07:00 Intake Total 500 ml 240 ml Balance 500 ml 240 ml Intake Oral 500 ml 240 ml # Voids 4 1 # Bowel Movements 2 Laboratory Tests 02/05/18 05:15: White Blood Count 4.1L, Red Blood Count 4.56, Hemoglobin 14.7, Hematocrit 41.4, Mean Corpuscular Volume 91, Mean Corpuscular Hemoglobin 32.3H, Mean Corpuscular Hemoglobin Concent 35.6, Red Cell Distribution Width 12.3, Platelet Count 149L, Mean Platelet Volume 7.8, Neutrophils (%) (Auto) 51.7, Lymphocytes (%) (Auto) 29.5, Monocytes (%) (Auto) 14.3H, Eosinophils (%) (Auto) 2.3, Basophils (%) ( Auto) 2.2H, Sodium Level 138, Potassium Level 5.1, Chloride Level 104, Carbon Dioxide Level 28, Anion Gap 6, Blood Urea Nitrogen 19H, Creatinine 0.8, Estimat Glomerular Filtration Rate , Glucose Level 104, Calcium Level 9.4 02/05/18 09:50: Stool Occult Blood Negative Height (Feet): 5 Height (Inches): 7.00 Weight (Pounds): 130 General Appearance: lethargic EENT: normal ENT inspection Neck: normal alignment Cardiovascular: normal peripheral pulses, arrhythmia Respiratory/Chest: chest wall non-tender, lungs clear, normal breath sounds Abdomen: normal bowel sounds, non tender, soft Extremities: normal inspection Edema: no edema noted Arm (L), no edema noted Arm (R), no edema noted Leg (L), no edema noted Leg (R), no edema noted Pedal (L), no edema noted Pedal (R), no edema noted Generalized Neurologic: motor weakness Skin: normal pigmentation, warm/dry Mega Solares DO Feb 05, 2018 12:41
--- NOTE | 2018-02-05 14:02 | Nephrology Progress Note ---
Assessment/Plan Assessment 1. Fluid overload. 2. Elevated liver enzymes, 3. Dyslipidemia, . 4. Hypertension, Plan plan to continue current meds monitoring renal function avoid NSAID replace electrolyte as need it Subjective Constitutional: Reports: no symptoms HEENT: Reports: no symptoms Neurologic/Psychiatric: Reports: no symptoms Objective Objective Last 24 Hour Vital Signs Date Time Temp Pulse Resp B/P (MAP) Pulse Ox O2 Delivery O2 Flow Rate FiO2 02/05/18 12:00 87 02/05/18 12:00 97.7 73 18 128/72 99 Room Air 97.7 02/05/18 08:38 130/72 02/05/18 08:36 88 130/72 02/05/18 08:36 88 02/05/18 08:00 97.9 88 17 130/72 97 Room Air 97.9 02/05/18 08:00 77 02/05/18 04:00 97.5 70 20 120/71 96 Room Air 97.5 02/05/18 04:00 83 02/05/18 00:00 97.9 69 20 133/88 97 Room Air 97.9 02/05/18 00:00 83 02/04/18 21:18 96 111/75 02/04/18 21:00 97.5 71 20 111/75 99 Room Air 97.5 02/04/18 20:00 96 02/04/18 16:00 85 02/04/18 16:00 97.5 71 20 111/75 99 Room Air 97.5 Intake and Output 02/04/18 02/05/18 19:00 07:00 Intake Total 500 ml 240 ml Balance 500 ml 240 ml Intake Oral 500 ml 240 ml # Voids 4 1 # Bowel Movements 2 Laboratory Tests 02/05/18 05:15: White Blood Count 4.1L, Red Blood Count 4.56, Hemoglobin 14.7, Hematocrit 41.4, Mean Corpuscular Volume 91, Mean Corpuscular Hemoglobin 32.3H, Mean Corpuscular Hemoglobin Concent 35.6, Red Cell Distribution Width 12.3, Platelet Count 149L, Mean Platelet Volume 7.8, Neutrophils (%) (Auto) 51.7, Lymphocytes (%) (Auto) 29.5, Monocytes (%) (Auto) 14.3H, Eosinophils (%) (Auto) 2.3, Basophils (%) ( Auto) 2.2H, Sodium Level 138, Potassium Level 5.1, Chloride Level 104, Carbon Dioxide Level 28, Anion Gap 6, Blood Urea Nitrogen 19H, Creatinine 0.8, Estimat Glomerular Filtration Rate , Glucose Level 104, Calcium Level 9.4 02/05/18 09:50: Stool Occult Blood Negative Height (Feet): 5 Height (Inches): 7.00 Weight (Pounds): 130 Objective HEAD AND NECK: No JVP. No LAD. No thyromegaly. Extraocular movement intact. Pupils are reactive to light and accommodation. LUNGS: Clear to auscultation. CARDIAC: Regular rate and rhythm. S1 and S2. No murmur. No rub. ABDOMEN: Soft, nontender, and nondistended. No organomegaly. EXTREMITIES: Trace edema. No clubbing. No cyanosis. NEUROLOGIC: Cranial nerves II through XII within normal limits. Upper and lower extremities are grossly intact. Mariela Laws MD Feb 05, 2018 14:02
[2018-02-05 16:00] VITALS: BP 131/79
[2018-02-05] MEDS ORDERED: ACETAMINOPHEN325 M1 ORAL (16:37)
[2018-02-05] MEDS ORDERED: DIGOXIN ELIX0.125 MG GT (16:39)
[2018-02-05] MEDS ORDERED: LOSARTAN POTASS50 MG ORAL (16:40)
[2018-02-05] MEDS ORDERED: DIGOXIN125 MCG ORAL (16:45)
[2018-02-05] MEDS ORDERED: PANTOPRAZOLE SO20 MG ORAL (16:46)
[2018-02-05] MEDS ORDERED: AMBIEN5 MG ORAL (16:47)
[2018-02-05] MEDS ORDERED: NS 275ml ONE (17:37)
--- NOTE | 2018-02-05 19:27 | Cardiology Progress Note ---
Assessment/Plan Assessment/Plan 1. Permanent atrial fibrillation with controlled ventricular response, continue metoprolol, digoxin and Eliquis. The patient had failed cardioversion in the past. 2. History of hypertension, well controlled, continue losartan and metoprolol. 3. Chest pain, noncardiac likely due to atrial fibrillation with rapid ventricular rate. The patient is ruled out for acute myocardial infarction. Subjective Subjective Atrial fibrillation with controlled ventricular response at 86. Objective Last 24 Hour Vital Signs Date Time Temp Pulse Resp B/P (MAP) Pulse Ox O2 Delivery O2 Flow Rate FiO2 02/05/18 16:00 96.6 86 18 131/79 98 Room Air 96.6 02/05/18 12:00 87 02/05/18 12:00 97.7 73 18 128/72 99 Room Air 97.7 02/05/18 08:38 130/72 02/05/18 08:36 88 130/72 02/05/18 08:36 88 02/05/18 08:00 97.9 88 17 130/72 97 Room Air 97.9 02/05/18 08:00 77 02/05/18 04:00 97.5 70 20 120/71 96 Room Air 97.5 02/05/18 04:00 83 02/05/18 00:00 97.9 69 20 133/88 97 Room Air 97.9 02/05/18 00:00 83 02/04/18 21:18 96 111/75 02/04/18 21:00 97.5 71 20 111/75 99 Room Air 97.5 02/04/18 20:00 96 Intake and Output 02/04/18 02/05/18 19:00 07:00 Intake Total 500 ml 240 ml Balance 500 ml 240 ml Intake Oral 500 ml 240 ml # Voids 4 1 # Bowel Movements 2 Laboratory Tests Test 02/05/18 05:15 02/05/18 09:50 White Blood Count 4.1 K/UL (4.8-10.8) L Red Blood Count 4.56 M/UL (4.20-5.40) Hemoglobin 14.7 G/DL (12.0-16.0) Hematocrit 41.4 % (37.0-47.0) Mean Corpuscular Volume 91 FL (80-99) Mean Corpuscular Hemoglobin 32.3 PG (27.0-31.0) H Mean Corpuscular Hemoglobin Concent 35.6 G/DL (32.0-36.0) Red Cell Distribution Width 12.3 % (11.6-14.8) Platelet Count 149 K/UL (150-450) L Mean Platelet Volume 7.8 FL (6.5-10.1) Neutrophils (%) (Auto) 51.7 % (45.0-75.0) Lymphocytes (%) (Auto) 29.5 % (20.0-45.0) Monocytes (%) (Auto) 14.3 % (1.0-10.0) H Eosinophils (%) (Auto) 2.3 % (0.0-3.0) Basophils (%) (Auto) 2.2 % (0.0-2.0) H Sodium Level 138 MMOL/L (136-145) Potassium Level 5.1 MMOL/L (3.5-5.1) Chloride Level 104 MMOL/L (98-107) Carbon Dioxide Level 28 MMOL/L (21-32) Anion Gap 6 mmol/L (5-15) Blood Urea Nitrogen 19 mg/dL (7-18) H Creatinine 0.8 MG/DL (0.55-1.30) Estimat Glomerular Filtration Rate mL/min (>60) Glucose Level 104 MG/DL (74-106) Calcium Level 9.4 MG/DL (8.5-10.1) Stool Occult Blood Negative (NEGATIVE) Objective HEENT: Atraumatic and normocephalic. Anicteric. Pupils are equal, round, and reactive to light and accommodation. Extraocular movements are intact. NECK: JVP less than 5 cm. No carotid bruit. Carotid upstroke is 2+ bilaterally. CARDIOVASCULAR: Normal S1 and S2. Irregularly irregular rhythm. A 2/6 mid systolic murmur at the left sternal border. PMI is at fourth intercostal space in the midclavicular line. LUNGS: Clear to auscultation bilaterally. ABDOMEN: Soft, nontender, and nondistended. No hepatosplenomegaly. Positive bowel sounds. EXTREMITIES: No evidence of edema, clubbing, or cyanosis. Arnie Sheikh MD Feb 05, 2018 19:27
--- NOTE | 2018-02-05 19:27 | Cardiology Progress Note ---
Assessment/Plan Assessment/Plan 1. Permanent atrial fibrillation with rapid ventricular response, continue metoprolol, digoxin and Eliquis. The patient had failed cardioversion in the past. 2. History of hypertension. Currently low BP likely due to clonidine use, DC clonidine and HCTZ. 3. Chest pain, noncardiac likely due to atrial fibrillation with rapid ventricular rate. The patient is ruled out for acute myocardial infarction. Subjective Subjective Atrial fibrillation with RVR at 111. Objective Last 24 Hour Vital Signs Date Time Temp Pulse Resp B/P (MAP) Pulse Ox O2 Delivery O2 Flow Rate FiO2 02/05/18 16:00 96.6 86 18 131/79 98 Room Air 96.6 02/05/18 12:00 87 02/05/18 12:00 97.7 73 18 128/72 99 Room Air 97.7 02/05/18 08:38 130/72 02/05/18 08:36 88 130/72 02/05/18 08:36 88 02/05/18 08:00 97.9 88 17 130/72 97 Room Air 97.9 02/05/18 08:00 77 02/05/18 04:00 97.5 70 20 120/71 96 Room Air 97.5 02/05/18 04:00 83 02/05/18 00:00 97.9 69 20 133/88 97 Room Air 97.9 02/05/18 00:00 83 02/04/18 21:18 96 111/75 02/04/18 21:00 97.5 71 20 111/75 99 Room Air 97.5 02/04/18 20:00 96 Intake and Output 02/04/18 02/05/18 19:00 07:00 Intake Total 500 ml 240 ml Balance 500 ml 240 ml Intake Oral 500 ml 240 ml # Voids 4 1 # Bowel Movements 2 Laboratory Tests Test 02/05/18 05:15 02/05/18 09:50 White Blood Count 4.1 K/UL (4.8-10.8) L Red Blood Count 4.56 M/UL (4.20-5.40) Hemoglobin 14.7 G/DL (12.0-16.0) Hematocrit 41.4 % (37.0-47.0) Mean Corpuscular Volume 91 FL (80-99) Mean Corpuscular Hemoglobin 32.3 PG (27.0-31.0) H Mean Corpuscular Hemoglobin Concent 35.6 G/DL (32.0-36.0) Red Cell Distribution Width 12.3 % (11.6-14.8) Platelet Count 149 K/UL (150-450) L Mean Platelet Volume 7.8 FL (6.5-10.1) Neutrophils (%) (Auto) 51.7 % (45.0-75.0) Lymphocytes (%) (Auto) 29.5 % (20.0-45.0) Monocytes (%) (Auto) 14.3 % (1.0-10.0) H Eosinophils (%) (Auto) 2.3 % (0.0-3.0) Basophils (%) (Auto) 2.2 % (0.0-2.0) H Sodium Level 138 MMOL/L (136-145) Potassium Level 5.1 MMOL/L (3.5-5.1) Chloride Level 104 MMOL/L (98-107) Carbon Dioxide Level 28 MMOL/L (21-32) Anion Gap 6 mmol/L (5-15) Blood Urea Nitrogen 19 mg/dL (7-18) H Creatinine 0.8 MG/DL (0.55-1.30) Estimat Glomerular Filtration Rate mL/min (>60) Glucose Level 104 MG/DL (74-106) Calcium Level 9.4 MG/DL (8.5-10.1) Stool Occult Blood Negative (NEGATIVE) Objective HEENT: Atraumatic and normocephalic. Anicteric. Pupils are equal, round, and reactive to light and accommodation. Extraocular movements are intact. NECK: JVP less than 5 cm. No carotid bruit. Carotid upstroke is 2+ bilaterally. CARDIOVASCULAR: Normal S1 and S2. Irregularly irregular rhythm. A 2/6 mid systolic murmur at the left sternal border. PMI is at fourth intercostal space in the midclavicular line. LUNGS: Clear to auscultation bilaterally. ABDOMEN: Soft, nontender, and nondistended. No hepatosplenomegaly. Positive bowel sounds. EXTREMITIES: No evidence of edema, clubbing, or cyanosis. Arnie Sheikh MD Feb 05, 2018 19:27
--- NOTE | 2018-02-08 07:56 | Discharge Summary ---
Discharge Summary Discharge Summary _ DATE OF ADMISSION: 02/02/2018 DATE OF DISCHARGE: 02/05/2018 REASON FOR ADMISSION: 82 years old female with past medical history significant for chronic atrial fibrillation with chronic anticoagulation, hypertension,,presented to emergency department with chest discomfort. Patient reported left-sided chest pain. Upon evaluation blood pressure elevated -160/112,patient was tachycardiac , pulse oximetry was stable in room air . Troponin negative, pro BNP 1251. EKG revealed atrial fibrillation with rapid ventricular response. cXChest x-ray revealed cardiomegaly and evidence of COPD with hyperexpanded lung, no overt signs of CHF. AST 124, ALT 103. Patient was given Lasix 1 in ED. patient was admitted to telemetry floor for further management with diagnosis of atrial fibrillation with rapid ventricular response, hypertension , chest pain, chronic anticoagulation, elevated liver enzyme. CONSULTANTS: jig and fixture builder Dr. Sheikh pulmonary Dr. Valentin tannery gummer Dr. Laws [facility]: Patient admitted to telemetry floor. Rate control was achieved with digoxin and beta liv. Patient was continued on Eliquis. No evidence of bleeding. Stable hemoglobin and hematocrit. Patient was on GI prophylaxis. Stool for occult blood negative. Blood pressure was managed with beta liv, Clonidine and ARB. Clonidine was stopped due to episode of hypotension. Serial troponin 2 were negative. EKG revealed atrial fibrillation , no acute ischemic changes. Patient was ruled out for acute myocardial infarction. Application Development Specialist closely followed. Per jig and fixture builder chest pain was noncardiac , likely secondary to atrial fibrillation with rapid ventricular response. Pain management issue was addressed, and pain was controlled ProBNP was slightly elevated. Upon admission patient was given Lasix in ED for possible fluid overload. Renal parameters and volumes were closely monitored. Patient remained normovolemic, and renal parameters stable. Lipid panel revealed elevated LDL 122, HDL 71. Patient was counseled on on low-fat low- cholesterol diet and consider repeating lipid panel in 3 months. If LDL still elevated, will recommend to start statin per primary care provider. LFT were monitored, LFT down to normal prior to discharge. Supplemental oxygen and pulmonary toilet were on board as needed to keep pulse oximetry above 92%. No evidence of CHF or COPD exacerbation. Pulse oximetry was stable on room air. Patient was working with physical and occupational therapies. Chest pain resolved, heart rate controlled. Patient was stable for discharge home with home health services FINAL DIAGNOSES: Atrial fibrillation with rapid ventricular response Hypertension Chest pain, noncardiac( likely secondary to Atrial fibrillation with rapid ventricular response) Chronic anticoagulation Dyslipidemia Elevated liver enzymes DISCHARGE MEDICATIONS: See Medication Reconciliation list. DISCHARGE INSTRUCTIONS: Patient was discharged home with home health services. Follow up with primary care provider in one week. I have been assigned to dictate discharge summary for this account. I was not involved in the patient's management. Marcia Jraa NP Feb 08, 2018 07:56
== END 2018-02-05 17:38 | disposition home health service (06) | DRG 310 ==
LOC: EDBD 19:34 → EMR 20:48 → 2E 20:52 → EDBEDREQ 21:05
DX: I48.2 Chronic atrial fibrillation (principal); I10 Essential (primary) hypertension; E78.5 Hyperlipidemia, unspecified; R74.8 Abnormal levels of other serum enzymes; I95.9 Hypotension, unspecified; I51.7 Cardiomegaly; E87.70 Fluid overload, unspecified; M81.0 Age-related osteoporosis without current pathological fracture; R07.89 Other chest pain; Z79.01 Long term (current) use of anticoagulants
CPT/HCPCS: 36415; 71045; 80048; 80053; 80061; 81001; 82043; 82044; 82270; 82550; 82553; 82570; 83735; 83880; 84100; 84300; 84484; 85025; 85610; 85651; 85730; 93005; 99285